=== PATIENT | female | born 1935 | race Two or more races ===

== ENCOUNTER 2019-07-22 13:16 | Emergency (ER) | payer MEDICARE, OTHER ==
[~2019-07-22] VITALS: Ht 162.6 cm; Wt 55.0 kg
[2019-07-22 14:03] VITALS: BP 120/75
[2019-07-22] MEDS ORDERED: KETOROLAC 60MG/2ML VIAL IM ONE (15:30)
== END 2019-07-22 16:37 | disposition home or self-care (01) ==
LOC: ER 13:16
DX: G89.29 Other chronic pain (principal); M54.2 Cervicalgia; E11.9 Type 2 diabetes mellitus without complications; E78.00 Pure hypercholesterolemia, unspecified; I10 Essential (primary) hypertension
CPT/HCPCS: 96372; 99283; J1885